=== PATIENT | female | born 1950 | race American Indian/Alaskan Native ===

== ENCOUNTER 2016-12-01 12:21 | Emergency (ER) | payer OTHER ==
[2016-12-01] MEDS ORDERED: MOTRIN PO ONE (14:47)
[2016-12-01] MEDS ORDERED: FLEXERIL PO ONE (14:47)
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
[2016-12-01 19:26] VITALS: BP 126/72
== END 2016-12-01 19:05 | disposition home or self-care (01) ==
LOC: ED 12:21
DX: S16.1XXA Strain of muscle, fascia and tendon at neck level, initial encounter (principal); M25.552 Pain in left hip; N63 Unspecified lump in breast; M79.672 Pain in left foot; I10 Essential (primary) hypertension; E78.00 Pure hypercholesterolemia, unspecified; V49.49XA Driver injured in collision with other motor vehicles in traffic accident, initial encounter; Y93.9 Activity, unspecified; Y92.9 Unspecified place or not applicable; Y99.9 Unspecified external cause status
CPT/HCPCS: 71020; 72125; 99284